=== PATIENT | male | born 1990 | race Caucasian/White ===

== ENCOUNTER 2024-03-31 15:00 | Emergency (ER) | payer MEDICAID ==
[~2024-03-31] VITALS: Ht 188 cm; Wt 80.1 kg
[2024-03-31 16:17] VITALS: BP 140/86; TEMP 97.3; O2SAT 99
== END 2024-03-31 16:29 | disposition home or self-care (01) ==
LOC: EDBD 15:00 → M ED 15:00
DX: S00.93XA Contusion of unspecified part of head, initial encounter (principal); S13.4XXA Sprain of ligaments of cervical spine, initial encounter; V49.50XA Passenger injured in collision with unspecified motor vehicles in traffic accident, initial encounter; Y92.410 Unspecified street and highway as the place of occurrence of the external cause; Y93.89 Activity, other specified; Y99.9 Unspecified external cause status